=== PATIENT | female | born 2000 | race African-American/Black ===

== ENCOUNTER 2022-12-12 09:55 | Emergency (ER) | payer MEDICAID ==
[~2022-12-12] VITALS: Ht 167.6 cm; Wt 57.3 kg
[2022-12-12 09:58] VITALS: BP 118/76; RESP 18; TEMP 98.3; O2SAT 99
[2022-12-12 10:02] VITALS: PULSE 73
[2022-12-12] MEDS ORDERED: IBUPROFEN 600MG TABLET PO ONE (11:30)
[2022-12-12] MEDS ORDERED: IBUP-2029 MT (12:47)
== END 2022-12-12 13:07 | disposition home or self-care (01) ==
LOC: ER 09:55
DX: S00.83XA Contusion of other part of head, initial encounter (principal); Y04.0XXA Assault by unarmed brawl or fight, initial encounter; Y93.89 Activity, other specified; Y92.89 Other specified places as the place of occurrence of the external cause; Y99.8 Other external cause status
CPT/HCPCS: 70486; 99284

== ENCOUNTER 2023-04-14 08:20 | Emergency (ER) | payer MEDICAID ==
[~2023-04-14] VITALS: Ht 165.1 cm; Wt 59.0 kg
[~2023-04-14 08:20] MED LIST: IBUP-2029 MT
[2023-04-14 08:31] VITALS: O2SAT 99
[2023-04-14 08:57] LABS: BASOPHILS % 0.6 % (0.0-2.0); EOSINOPHILS % 0.5 % (0.0-5.0); HEMATOCRIT. 39.1 % (36.0-48.0); HEMOGLOBIN. 13.4 g/dL (12.0-16.0); MEAN CORPUSCULAR HEMOGLOBIN 30.1 pg (28.0-32.0); MEAN CORPUSCULAR HGB CONC 34.3 g/dL (31.0-37.0); MEAN CORPUSCULAR VOLUME 87.8 fL (81.0-99.0); MEAN PLATELET VOLUME 9.4 fl (7.4-10.4); NEUTROPHILS % 63.9 % (40.0-76.0); PLATELET 275 x1000/uL (130-400); RED BLOOD CELL COUNT 4.45 mill/uL (4.2-5.4); RED CELL DISTRIBUTION WIDTH 14.7 % (11.6-14.6); WHITE BLOOD COUNT 10.1 x1000/uL (4.5-11.0)
[2023-04-14] MEDS ORDERED: HALOPERIDOL LACTATE 5MG/ML VIAL IM ONE (09:00)
[2023-04-14] MEDS ORDERED: SODIUM CHLORIDE 0.9% 1,000 ML IV ONE (09:00)
[2023-04-14] MEDS ORDERED: FAMOTIDINE 20MG/2ML VIAL IV ONE (09:00)
[2023-04-14 09:07] LABS: CHLORIDE 108 mEq/L (98-107); INDEX HEMOLYSI 1 (1-3); INDEX ICTERIC 1 (1-4); INDEX LIPEMIC 1 (1-3); POTASSIUM 3.4 mEq/L (3.5-5.1); SODIUM 137 mEq/L (136-145)
[2023-04-14 09:27] LABS: HCG SCREEN NEGATIVE
[2023-04-14 10:06] LABS: ALANINE AMINOTRANSFERASE 8 IU/L (13-61); ALBUMIN 3.7 g/dL (3.4-5.0); ASPARTATE AMINOTRANSFERASE 13 IU/L (15-37); CALCIUM 8.6 mg/dL (8.5-10.1); CARBON DIOXIDE 23 mEq/L (21-32); CREATININE 0.6 mg/dL (0.6-1.3); ETHANOL BLOOD < 10 mg/dL (<10); GLUCOSE 113 mg/dL (70-105); PROTEIN TOTAL 7.5 g/dL (6.0-8.3); UREA NITROGEN BLOOD 11 mg/dL (7-21)
[2023-04-14 10:24] LABS: BILIRUBIN TOTAL 0.4 mg/dL (0.1-1.0)
[2023-04-14 11:58] VITALS: BP 112/78; PULSE 64; RESP 18; TEMP 98
== END 2023-04-14 11:59 | disposition home or self-care (01) ==
LOC: ER 08:20
DX: R11.2 Nausea with vomiting, unspecified (principal)
CPT/HCPCS: 80053; 80320; 84703; 83690; 85025; 36415; 96361; 96372; 96374; 99283; J3490; J1630; J7030; Z7610 ×3; C1893; G0480

== ENCOUNTER 2023-04-27 17:27 | Emergency (ER) | payer MEDICAID ==
[~2023-04-27] VITALS: Ht 165.1 cm; Wt 57.2 kg
[2023-04-27 17:35] VITALS: BP 109/91; O2SAT 100
[2023-04-27] MEDS ORDERED: ONDANSETRON HCL 4MG/2ML INJ IV STA (17:40)
[2023-04-27] MEDS ORDERED: SODIUM CHLORIDE 0.9% 1,000 ML IV ONE (17:45)
[2023-04-27 18:20] LABS: BASOPHILS % 0.7 % (0.0-2.0); DIFFERENTIAL COMMENT 0; HEMATOCRIT. 38.2 % (36.0-48.0); LYMPHOCYTES % 12.1 % (20.0-50.0); MEAN CORPUSCULAR HEMOGLOBIN 29.9 pg (28.0-32.0); MEAN CORPUSCULAR VOLUME 87.9 fL (81.0-99.0); MEAN PLATELET VOLUME 10.1 fl (7.4-10.4); MONOCYTES % 2.6 % (2.0-8.0); NEUTROPHILS % 84.6 % (40.0-76.0); PLATELET 311 x1000/uL (130-400); RED BLOOD CELL COUNT 4.34 mill/uL (4.2-5.4); WHITE BLOOD COUNT 8.4 x1000/uL (4.5-11.0)
[2023-04-27 18:32] LABS: HCG SCREEN NEGATIVE
[2023-04-27 18:38] LABS: ALANINE AMINOTRANSFERASE < 7 IU/L (10-49); ALBUMIN 4.5 g/dL (3.2-4.8); ASPARTATE AMINOTRANSFERASE 19 IU/L (<34); BILIRUBIN TOTAL 0.9 mg/dL (0.1-1.0); CALCIUM 9.9 mg/dL (8.7-10.4); CARBON DIOXIDE 15 mEq/L (21-32); CHLORIDE 102 mEq/L (98-107); CREATININE 0.7 mg/dL (0.6-1.0); GLUCOSE 100 mg/dL (70-105); POTASSIUM 3.6 mEq/L (3.5-5.1); PROTEIN TOTAL 7.4 g/dL (6.0-8.3); SODIUM 136 mEq/L (136-145); UREA NITROGEN BLOOD 9 mg/dL (9-23)
[2023-04-27 19:25] LABS: ETHANOL BLOOD < 10 mg/dL (<10)
[2023-04-27] MEDS ORDERED: ONDANSETRON HCL 4MG/2ML INJ IV NR (21:00)
[2023-04-27] MEDS ORDERED: ONDA4TAB50 MT (21:20)
[2023-04-27 21:21] LABS: CLARITY URINE CLOUDY (CLEAR); COLOR URINE YELLOW (YELLOW); GLUCOSE URINE NEGATIVE (NEGATIVE); KETONES URINE 4+ (NEGATIVE); LEUKOCYTE ESTERASE URINE NEGATIVE (NEGATIVE); NITRITE URINE NEGATIVE (NEGATIVE); OCCULT BLOOD URINE NEGATIVE (NEGATIVE); PH URINE 5.5 (4.5-8.0); PROTEIN URINE TRACE (NEGATIVE)
[2023-04-27 21:22] LABS: BACTERIA URINE 1+; RBC URINE NONE SEEN /hpf (0-2); SQUAMOUS EPITHELIAL CELL URINE 1+ /lpf (RARE/1+); YEAST URINE NONE SEEN
[2023-04-27 21:36] LABS: *AMPHETAMINES SCREEN URINE NEGATIVE (NEGATIVE); *BARBITURATES SCREEN URINE NEGATIVE (NEGATIVE); *BENZODIAZEPINES SCREEN URINE NEGATIVE (NEGATIVE); *COCAINE SCREEN URINE NEGATIVE (NEGATIVE); CANNABINOID URINE SCREEN PRESUMPTIVE POSITIVE (NEGATIVE); ECSTASY MDMA SCREEN URINE NEGATIVE (NEGATIVE); METHADONE URINE SCREEN Neg (NEGATIVE); OPIATES URINE SCREEN NEGATIVE (NEGATIVE); PHENCYCLIDINE URINE SCREEN NEGATIVE (NEGATIVE)
[2023-04-27 22:19] VITALS: PULSE 93; RESP 16; TEMP 98.2
== END 2023-04-27 22:20 | disposition home or self-care (01) ==
LOC: ER 17:27
DX: T40.711A Poisoning by cannabis, accidental (unintentional), initial encounter (principal); R11.2 Nausea with vomiting, unspecified; Y92.89 Other specified places as the place of occurrence of the external cause
CPT/HCPCS: 80053; 80305; 81003; 81025; 80320; 84703; 83690; 85025; 36415; 96361; 96374; 99283; J2405; J7030; Z7610; G0480

== ENCOUNTER 2023-12-30 00:04 | Emergency (ER) | payer MEDICAID ==
[~2023-12-30] VITALS: Ht 165.1 cm; Wt 54.5 kg
[~2023-12-30 00:04] MED LIST changes: +ONDA4TAB50 MT
[2023-12-30 00:16] VITALS: TEMP 98; O2SAT 97
[2023-12-30 00:45] VITALS: BP 115/76; PULSE 96; RESP 16
[2023-12-30] MEDS ORDERED: LIDOCAINE HCL/EPINEPHRINE 1%-EPI 1:100,000 20 ML VIAL INFIL ONE (00:45)
[2023-12-30] MEDS: BACITRACIN ZINC OINT UDPKT TOP ONE (00:45)
[2023-12-30] MEDS: HYDROCODONE/ACETAMINOPHEN 5/325MG TABLET PO ONE (00:45)
[2023-12-30] MEDS ORDERED: IBUP-2030 MT (01:05)
[2023-12-30] MEDS ORDERED: CEPH500T MT (01:05)
[2023-12-30] MEDS ORDERED: DOXY100T28 MT (01:05)
== END 2023-12-30 02:20 | disposition home or self-care (01) ==
LOC: ER 00:04
DX: L02.31 Cutaneous abscess of buttock (principal); Z79.899 Other long term (current) drug therapy; Z98.890 Other specified postprocedural states
CPT/HCPCS: 10060; 81025; 99283

== ENCOUNTER 2024-01-03 12:46 | Emergency (ER) | payer MEDICAID ==
[~2024-01-03] VITALS: Ht 165.1 cm; Wt 54.4 kg
[~2024-01-03 12:46] MED LIST changes: +CEPH500T MT; +DOXY100T28 MT; +IBUP-2030 MT
[2024-01-03 13:13] VITALS: O2SAT 99
[2024-01-03 14:01] VITALS: BP 123/68; PULSE 68; RESP 17; TEMP 97.3
== END 2024-01-03 14:02 | disposition home or self-care (01) ==
LOC: ER 12:46
DX: L02.31 Cutaneous abscess of buttock (principal); Z48.00 Encounter for change or removal of nonsurgical wound dressing
CPT/HCPCS: 99281

== ENCOUNTER 2024-01-06 18:08 | Emergency (ER) | payer MEDICAID ==
[~2024-01-06] VITALS: Ht 165.1 cm; Wt 55.0 kg
[2024-01-06 18:18] VITALS: O2SAT 99
[2024-01-06] MEDS ORDERED: DICYCLOMINE 10 MG/5 ML ORAL SYR PO STA (19:14)
[2024-01-06] MEDS ORDERED: ONDANSETRON HCL 4MG/2ML INJ IV STA (19:14)
[2024-01-06] MEDS ORDERED: MAGNESIUM/ALUMINUM HYDROXIDE/SIMETHICONE 30ML UDC PO STA (19:14)
[2024-01-06 19:52] LABS: BASOPHILS % 0.4 % (0.0-2.0); HEMATOCRIT. 38.1 % (36.0-48.0); HEMOGLOBIN. 12.8 g/dL (12.0-16.0); LYMPHOCYTES % 7.3 % (20.0-50.0); MEAN CORPUSCULAR HEMOGLOBIN 29.7 pg (28.0-32.0); MEAN CORPUSCULAR HGB CONC 33.5 g/dL (31.0-37.0); MEAN CORPUSCULAR VOLUME 88.8 fL (81.0-99.0); MEAN PLATELET VOLUME 9.2 fl (7.4-10.4); MONOCYTES % 5.2 % (2.0-8.0); NEUTROPHILS % 87.1 % (40.0-76.0); PLATELET 352 x1000/uL (130-400); RED CELL DISTRIBUTION WIDTH 13.6 % (11.6-14.6); WHITE BLOOD COUNT 15.5 x1000/uL (4.5-11.0)
[2024-01-06 20:00] LABS: CARBON DIOXIDE 19 mEq/L (21-32); CHLORIDE 105 mEq/L (98-107); POTASSIUM 4.1 mEq/L (3.5-5.1); SODIUM 138 mEq/L (136-145)
[2024-01-06 20:01] LABS: CALCIUM 9.7 mg/dL (8.7-10.4); PROTHROMBIN TIME 11.4 sec (9.6-11.0)
[2024-01-06 20:03] LABS: HCG SCREEN NEGATIVE
[2024-01-06 20:05] LABS: CREATININE 0.7 mg/dL (0.6-1.0)
[2024-01-06 20:06] LABS: GLUCOSE 89 mg/dL (70-105); UREA NITROGEN BLOOD 9 mg/dL (9-23)
[2024-01-06 20:07] LABS: ALANINE AMINOTRANSFERASE 9 IU/L (10-49); ASPARTATE AMINOTRANSFERASE 26 IU/L (<34)
[2024-01-06 20:08] LABS: ALBUMIN 4.8 g/dL (3.2-4.8); BILIRUBIN DIRECT 0.2 mg/dL (<=3.0); BILIRUBIN TOTAL 0.5 mg/dL (0.1-1.0)
[2024-01-06] MEDS: SODIUM CHLORIDE 0.9% 1,000 ML IV ONE (21:05)
[2024-01-06] MEDS: DICYCLOMINE HCL 10MG CAPSULE PO NR (21:15)
[2024-01-06] MEDS: KETOROLAC 30MG/ML VIAL IV STA (21:16)
[2024-01-06] MEDS: MAGNESIUM/ALUMINUM HYDROXIDE/SIMETHICONE 30ML UDC PO STA (21:18)
[2024-01-06] MEDS: ONDANSETRON HCL 4MG/2ML INJ IV STA ×2 (21:18→23:09)
[2024-01-06 23:10] VITALS: TEMP 98.2
[2024-01-06 23:26] VITALS: BP 110/53; PULSE 66; RESP 18
[2024-01-06] MEDS: MORPHINE SULFATE 4 MG/ML INJ (FOR IV/IM USE) IV STA (23:26)
== END 2024-01-06 23:31 | disposition home or self-care (01) ==
LOC: ER 18:08
DX: R10.9 Unspecified abdominal pain (principal); R11.2 Nausea with vomiting, unspecified; Z79.899 Other long term (current) drug therapy
CPT/HCPCS: 80076; 80048; 84703; 83690; 85025; 85610; 36415; 74176; 96361; 96374; 96375; 96376; 99285; J1885; J2405; J2270; J7030; Z7610

== ENCOUNTER 2024-01-11 04:56 | Emergency (ER) | payer MEDICAID ==
[~2024-01-11] VITALS: Ht 165.1 cm; Wt 55.0 kg
[2024-01-11 05:24] VITALS: O2SAT 97
[2024-01-11] MEDS ORDERED: SULF1TAB48 PO (06:10)
[2024-01-11 06:25] VITALS: BP 120/63; PULSE 78; RESP 20; TEMP 98.6
== END 2024-01-11 06:27 | disposition home or self-care (01) ==
LOC: ER 04:56
DX: L02.31 Cutaneous abscess of buttock (principal); L03.317 Cellulitis of buttock; Z79.899 Other long term (current) drug therapy
CPT/HCPCS: 99283; Z7610

== ENCOUNTER 2024-08-02 03:02 | Emergency (ER) | payer MEDICAID ==
[~2024-08-02] VITALS: Ht 165.1 cm; Wt 51.0 kg
[~2024-08-02 03:02] MED LIST changes: +SULF1TAB48 PO
[2024-08-02 03:09] VITALS: BP 109/82; PULSE 85; RESP 16; TEMP 36.8; O2SAT 100
[2024-08-02] MEDS ORDERED: PREDNISONE 20MG TABLET PO ONE (03:30)
[2024-08-02] MEDS ORDERED: P50 MT (03:36)
== END 2024-08-02 03:38 | disposition left against medical advice (07) ==
LOC: ER 03:02
DX: R21 Rash and other nonspecific skin eruption (principal); Z79.899 Other long term (current) drug therapy
CPT/HCPCS: 99281

== ENCOUNTER 2024-12-05 13:52 | Emergency (ER) | payer MEDICAID ==
[~2024-12-05] VITALS: Ht 162.6 cm; Wt 55.0 kg
[~2024-12-05 13:52] MED LIST changes: +P50 MT
[2024-12-05 13:57] VITALS: O2SAT 99
[2024-12-05] MEDS: IBUPROFEN 600MG TABLET PO ONE (15:06)
[2024-12-05] MEDS: ACETAMINOPHEN 325MG TABLET PO ONE (15:07)
[2024-12-05 17:43] LABS: BASOPHILS % 0.5 % (0.0-2.0); EOSINOPHILS % 0.1 % (0.0-5.0); HEMATOCRIT. 37.4 % (36.0-48.0); HEMOGLOBIN. 12.8 g/dL (12.0-16.0); LYMPHOCYTES % 7.8 % (20.0-50.0); MEAN CORPUSCULAR HEMOGLOBIN 30.9 pg (28.0-32.0); MEAN CORPUSCULAR HGB CONC 34.3 g/dL (31.0-37.0); MEAN CORPUSCULAR VOLUME 90.1 fL (81.0-99.0); MEAN PLATELET VOLUME 9.2 fl (7.4-10.4); MONOCYTES % 5.2 % (2.0-8.0); NEUTROPHILS % 86.4 % (40.0-76.0); PLATELET 309 x1000/uL (130-400); RED BLOOD CELL COUNT 4.15 mill/uL (4.2-5.4); RED CELL DISTRIBUTION WIDTH 14.5 % (11.6-14.6)
[2024-12-05 17:48] LABS: CHLORIDE 104 mEq/L (98-107); POTASSIUM 3.7 mEq/L (3.5-5.1); SODIUM 137 mEq/L (136-145)
[2024-12-05 17:49] LABS: CALCIUM 9.4 mg/dL (8.7-10.4); CARBON DIOXIDE 22 mEq/L (21-32)
[2024-12-05 17:50] LABS: PROTHROMBIN TIME 10.9 sec (9.6-11.0)
[2024-12-05 17:54] LABS: CREATININE 0.8 mg/dL (0.6-1.0); GLUCOSE 81 mg/dL (70-105); UREA NITROGEN BLOOD 9 mg/dL (9-23)
[2024-12-05 21:34] VITALS: BP 94/52; PULSE 70; RESP 16; TEMP 36.8; O2SAT 99
== END 2024-12-05 21:55 | disposition short-term general hospital (02) ==
LOC: ER 13:52
DX: T79.7XXA Traumatic subcutaneous emphysema, initial encounter (principal); Z79.899 Other long term (current) drug therapy; Z98.890 Other specified postprocedural states; X58.XXXA Exposure to other specified factors, initial encounter; Y93.89 Activity, other specified; Y92.89 Other specified places as the place of occurrence of the external cause; Y99.8 Other external cause status
CPT/HCPCS: 80048; 81025; 85025; 85610; 36415; 71101; 70490; 99291; Z7610